=== PATIENT | female | born 1975 ===

== ENCOUNTER 2018-06-05 14:19 | Outpatient (CLI) | payer OTHER ==
[~2018-06-05] VITALS: Ht 160 cm; Wt 54.4 kg
== END 2018-06-05 14:35 | disposition home or self-care (01) ==
LOC: OFIC 805 14:19
DX: J32.8 Other chronic sinusitis (principal); J30.89 Other allergic rhinitis

== ENCOUNTER 2020-10-16 08:28 | Outpatient (CLI) | payer OTHER | END 2020-10-16 08:39 | disposition home or self-care (01) | LOC: SONOGRAMA 08:28 → MAMO-SONO 09:15 | PROVIDERS: ATTEND Obstetrics & Gynecology Gynecology | DX: D25.1 Intramural leiomyoma of uterus (principal); N80.1 Endometriosis of ovary ==